=== PATIENT | female | born 1965 | race Caucasian/White ===

== ENCOUNTER 2022-04-15 11:02 | Emergency (ER) | payer MEDICARE, MEDICAID, SELFPAY ==
--- NOTE | ~2022-04-15 | CT_ITS ---
EXAMINATION: CT ABDOMEN AND PELVIS WITH CONTRAST CLINICAL INFORMATION: Vaginal bleeding for one month. COMPARISON: None TECHNIQUE: Multidetector volumetric images were obtained from the superior aspect of the liver through the pubic symphysis following administration 85 mL of Omnipaque 350 intravenous contrast. Sagittal and coronal reformatted images were obtained on the technologist's workstation. Oral contrast: No This CT examination was performed using dose optimization techniques as appropriate, variously including the following: *Automated exposure control *Adjustment of mA and/or kV according to patient size (this includes techniques or standardized protocols for targeted exams where dose is matched to indication/reason for exam; i.e. extremities or head) *Use of iterative reconstruction technique DLP: 1616 mGy-cm FINDINGS: LUNG BASES: The visualized lung bases are unremarkable. LIVER, GALLBLADDER, AND BILIARY TREE: The liver is normal in size, shape, and attenuation. No focal hepatic lesion or biliary ductal dilatation is present. Multiple small hypodense, cholesterol, stones in the gallbladder. No gallbladder wall thickening or pericholecystic fluid. No bile duct dilatation. PANCREAS: Unremarkable. SPLEEN: Unremarkable. ADRENAL GLANDS: Unremarkable. KIDNEYS AND URETERS: The kidneys are normal in size, shape, and attenuation. No hydronephrosis, hydroureter, or calculi seen. No perinephric stranding. BLADDER: Unremarkable. GASTROINTESTINAL TRACT: No acute abnormality There is no bowel wall thickening /edema. There is no bowel obstruction. There is a moderate to large volume of stool in the colon. Large volume of stool in the rectum sigmoid without evidence of stercoral colitis The appendix is normal . The small bowel loops are unremarkable. The stomach is normal. There is no hiatal hernia. Mesentery: No free air or free fluid. No inflammation. There are 2 intraventricular peritoneal catheters extending from the subcutaneous tissue into the lower pelvic abdominal cavity. There is a right-sided a left-sided catheter. ABDOMINAL WALL: No significant hernia is appreciated. LYMPH NODES: Normal. VASCULAR: IVC filter in place just inferior to the intrahepatic portion of the vein. Small volume of scattered vascular wall calcifications of the abdominal aorta. There is no aneurysm. PELVIC VISCERA: Uterus is anteverted. No adnexal abnormality. No fluid in the cul-de-sac. 1 cm coarse calcification in the right adnexa/ovary. OSSEOUS STRUCTURES: Compression deformity of the superior endplate of L1 appears chronic. A 50% loss of height of the vertebral body. No bone destruction. No paraspinal soft tissue mass. CT/CT abdomen pelvis w IV con IMPRESSION: No acute abnormality CT scan abdomen pelvis. Fleischner guidelines were followed.
[2022-04-15 11:27] VITALS: BP 110/66; BP 116/60; PULSE 88; PULSE 93; RESP 20; TEMP 37; O2SAT 96; O2SAT 97; BMI 41.1
--- NOTE | 2022-04-15 11:44 | ED.FEMALEGU ---
HPI - Female Genitourinary General Chief complaint: Vaginal Bleeding Stated complaint: VAGINAL BLEEDIN X'S 1 MTH,+THIN,FROM SNF PER EMS Time Seen by Provider: 04/15/22 11:20 Source: patient Mode of arrival: EMS Limitations: other (poor historian) History of Present Illness HPI Narrative: 57 yo female with hx of seizures, PE on eliquis, TBI, head injury, cognitive impairment, HTN presents with 1 month vaginal bleeding states she also now has lower pelvic pain but no sure when. She cannot tell me much else. Not sure why she was sent today with 1 month of bleeding. Does not remember last period. MD elicited complaint: vaginal bleeding and pelvic pain Onset (ago): month(s) (1) Location of symptoms: pelvis Severity: moderate Quality of pain: cramping and dull Consistency: constant Vaginal bleeding: moderate and clots Exacerbating factors: none Relieving factors: none Associated symptoms: denies other symptoms Treatment prior to arrival: none Related Data Allergies Allergy/AdvReac Type Severity Reaction Status Date / Time lactase [From LACTAID] Allergy Unknown UNKNOWN Unverified 11/17/19 18:55 Review of Systems Review of Systems: ROS unable to be obtained due to poor historian PMFSH Past Medical History Attestation statement: The following information was validated with the patient. Medical History Head injury Pulmonary embolus Seizure Social History Social History Alcohol intake: never Patient Tobacco Use Status: Tobacco use Unknown Smoked in Last 30 Days: No Use of substances other than those prescribed or required for medical reasons: No Advance Directives: Yes Advance Directives Information Provided: Yes Advance Directives on File: No Physical Exam Vital Signs: Vital Signs: Last Vital Signs Temp 99.3 F 04/15/22 14:04 Pulse 76 04/15/22 14:04 Resp 16 04/15/22 14:04 BP 171/89 H 04/15/22 14:04 Pulse Ox 96 04/15/22 14:04 O2 Del Method 04/15/22 14:04 BMI result Body Mass Index 41.1 Appearance: Alert. Oriented to self. No acute distress. Eyes: Pupils equal, round and reactive to light. ENT: Pharynx normal. Neck: Normal inspection. Neck supple. CVS: Normal heart rate and rhythm. Pulses normal. Respiratory: No respiratory distress. Breath sounds normal. Abdomen: Soft and nontender. : mild vaginal bleeding one clot seen no rectal bleeding Skin: Skin warm and dry. Normal skin color. Normal skin turgor. Extremities: No lower extremity edema. No calf ttp Neuro: Oriented to self No motor deficit. No sensory deficit. Course Course Course Narrative: type and screen ordered hemoglobin 12.7 on 04/03/22 Dr. Camarena to come see patient in ED refuses pelvic exam with OB needs biopsy can follow up with outpatient VS stable and female provider will send back to [facility] with instructions Medications Administered Discontinued Medications Generic Name Dose Route Start Last Admin Trade Name Freq PRN Reason Stop Dose Admin Iohexol 100 ml 04/15/22 14:41 04/15/22 14:41 Iohexol 350 Mg/Ml 100 Ml Infus..Btl IV 04/15/22 14:42 85 ml ONCE ONE Administration Medical Decision Making Medical Decision Making [facility] Narrative: 57 yo female with hx of seizures, PE on eliquis, TBI, head injury, cognitive impairment, HTN - here with complaint of vaginal bleeding x 1 month at this time will need basic labs, CT scan for mass she does not think she can tolerate a transvaginal US and given body habitus I do not think she could have transabdominal US. Possible uterine mass. Differential Diagnosis Differential Diagnoses: The differential diagnosis associated with the presentation includes uterine mass, coagulopathy, DUB Admission/Observation Consideration of admission/observation: Escalation of care including admission/observation considered Consult Healthcare Provider Management of the patient was discussed with: Ingredient Specialist Lab Data [facility] Lab Attestation statement: I reviewed the patient's lab results. 04/15/22 12:25 04/15/22 12:25 Labs: Lab Results 04/15/22 04/15/22 04/15/22 Range/Units 12:25 12:25 12:25 WBC 8.5 (4.8-10.8) X10*3/uL RBC 3.29 L (4.20-5.50) X10*6/uL Hgb 9.7 L (12.0-16.0) g/dl Hct 30.8 L (37.0-47.0) % MCV 93.6 (80.0-98.0) fL MCH 29.5 (27.0-33.0) pg MCHC 31.5 (31.0-35.0) g/dl RDW 14.6 (11.0-16.0) % Plt Count 338 (160-400) X10*3/uL MPV 9.8 (9.4-12.3) fL Immature Gran % (Auto) 0.4 (0.0-0.4) % Neut % (Auto) 55.5 (45-73) % Lymph % (Auto) 34.6 (20-40) % [place] % (Auto) 6.2 (2-11) % Eos % (Auto) 2.4 (0-4) % Baso % (Auto) 0.9 (0-2) % Lymph # (Auto) 2.9 (1.2-4.9) X10*3/uL [place] # (Auto) 0.5 (0.1-1.2) X10*3/uL Eos # (Auto) 0.2 (0.0-0.4) X10*3/uL Baso # (Auto) 0.1 (0.0-0.2) X10*3/uL Abs Immat Gran (auto) 0.03 (0.00-0.03) X10*3/uL Absolute Neuts (auto) 4.7 (2.0-8.3) x10*3/uL Absolute Nucleated RBC 0.000 (0.0-0.012) X10*3/uL Nucleated RBC % (auto) 0.0 (0.0-0.2) /100WBC PT 18.9 H (10.0-13.1) SEC INR 1.6 H (0.9-1.1) Sodium 141 (135-145) mmol/L Potassium 4.1 (3.3-5.1) mmol/L Chloride 103 (96-108) mmol/L Carbon Dioxide 29 (22-29) mmol/L Anion Gap 13 (12-20) BUN 13 (9-16) mg/dL Creatinine 0.61 (0.5-1.4) mg/dL Estim Creat Clear Calc 121.1 Estimated GFR > 60 Random Glucose 100 (60-115) mg/dL Calcium 8.7 (8.4-10.2) mg/dL Magnesium 1.9 (1.6-2.6) mg/dL Total Bilirubin 0.3 (0.0-1.0) mg/dL Direct Bilirubin < 0.2 (0.0-0.5) mg/dL AST 11 (5-31) U/L ALT 10 (0-31) U/L Alkaline Phosphatase 56 (39-117) U/L Total Protein 5.9 L (6.5-8.0) g/dL Albumin 3.2 L (3.5-5.0) g/dL Lipase 23 (8-78) U/L COVID-19 (JUAN ANTONIO) (Negative) COVID-19 Clin Com 04/15/22 Range/Units 12:25 WBC (4.8-10.8) X10*3/uL RBC (4.20-5.50) X10*6/uL Hgb (12.0-16.0) g/dl Hct (37.0-47.0) % MCV (80.0-98.0) fL MCH (27.0-33.0) pg MCHC (31.0-35.0) g/dl RDW (11.0-16.0) % Plt Count (160-400) X10*3/uL MPV (9.4-12.3) fL Immature Gran % (Auto) (0.0-0.4) % Neut % (Auto) (45-73) % Lymph % (Auto) (20-40) % [place] % (Auto) (2-11) % Eos % (Auto) (0-4) % Baso % (Auto) (0-2) % Lymph # (Auto) (1.2-4.9) X10*3/uL Perry # (Auto) (0.1-1.2) X10*3/uL Eos # (Auto) (0.0-0.4) X10*3/uL Baso # (Auto) (0.0-0.2) X10*3/uL Abs Immat Gran (auto) (0.00-0.03) X10*3/uL Absolute Neuts (auto) (2.0-8.3) x10*3/uL Absolute Nucleated RBC (0.0-0.012) X10*3/uL Nucleated RBC % (auto) (0.0-0.2) /100WBC PT (10.0-13.1) SEC INR (0.9-1.1) Sodium (135-145) mmol/L Potassium (3.3-5.1) mmol/L Chloride (96-108) mmol/L Carbon Dioxide (22-29) mmol/L Anion Gap (12-20) BUN (9-16) mg/dL Creatinine (0.5-1.4) mg/dL Estim Creat Clear Calc Estimated GFR Random Glucose (60-115) mg/dL Calcium (8.4-10.2) mg/dL Magnesium (1.6-2.6) mg/dL Total Bilirubin (0.0-1.0) mg/dL Direct Bilirubin (0.0-0.5) mg/dL AST (5-31) U/L ALT (0-31) U/L Alkaline Phosphatase (39-117) U/L Total Protein (6.5-8.0) g/dL Albumin (3.5-5.0) g/dL Lipase (8-78) U/L COVID-19 (JUAN ANTONIO) Negative (Negative) COVID-19 Clin Com See Note Independent Interpretation I performed an independent interpretation of an: CT Scan Radiology Impression Discussion of test interpretation with radiology: I have reviewed the radiologist's reading. Independent Historian Clinical information obtained from an independent historian. History obtained from or confirmed by: Other External Record Review External record reviewed: Outpatient record Social Determinants Patient?s care significantly limited by Social Determinants of Health including: Other Social Determinant of Health Discharge Plan Discharge Clinical Impression: Vaginal bleeding Patient Disposition: Home, Self-Care Instructions: Dysfunctional Uterine Bleeding (ED) Additional Instructions: return to ED for any worsening symptoms or concerns hemoglobin did drop 9.7 recheck in 1 day seen by OB in ED - follow up as outpatient try for female provider, needs outpatient endometrial biopsy and pap smear return for worsening bleeding, would consider holding eliquis, add on Fe daily return for pain, worsening bleeding, weakness, dizziness CT scan done no uterine masses seen - patient didnt feel she could tolerate pelvic US
[2022-04-15 12:34] LABS: MANUAL DIFF FLAG NO
[2022-04-15 12:35] LABS: Basophils Absolute Auto 0.1 X10*3/uL (0.0-0.2); Basophils Percent Auto 0.9 % (0-2); Eosinophils Absolute Auto 0.2 X10*3/uL (0.0-0.4); Eosinophils Percent Auto 2.4 % (0-4); Hematocrit 30.8 % (37.0-47.0); Hemoglobin 9.7 g/dl (12.0-16.0); Imm Gran Abs Auto 0.03 X10*3/uL (0.00-0.03); Imm Gran Pct Auto 0.4 % (0.0-0.4); Lymphocytes Absolute Auto 2.9 X10*3/uL (1.2-4.9); Lymphocytes Percent Auto 34.6 % (20-40); Mean Corpuscular HGB Conc 31.5 g/dl (31.0-35.0); Mean Corpuscular Hemoglobin 29.5 pg (27.0-33.0); Mean Corpuscular Volume 93.6 fL (80.0-98.0); Mean Platelet Volume 9.8 fL (9.4-12.3); Monocytes Absolute Auto 0.5 X10*3/uL (0.1-1.2); Monocytes Percent Auto 6.2 % (2-11); Neutrophils Absolute Auto 4.7 x10*3/uL (2.0-8.3); Neutrophils Percent Auto 55.5 % (45-73); Platelet Count 338 X10*3/uL (160-400); Red Blood Count 3.29 X10*6/uL (4.20-5.50); Red Cell Distribution Width 14.6 % (11.0-16.0); White Blood Count 8.5 X10*3/uL (4.8-10.8)
[2022-04-15 13:01] LABS: INTERNATIONAL NORM RATIO 1.6 (0.9-1.1); Prothrombin Time 18.9 SEC (10.0-13.1)
[2022-04-15 13:03] LABS: COVID-19 Test Negative (Negative); IDNOW Serial# 55D5AD1C
[2022-04-15 13:05] LABS: Alanine Aminotransferase 10 U/L (0-31); Albumin Level 3.2 g/dL (3.5-5.0); Alkaline Phosphatase 56 U/L (39-117); Anion Gap 13 (12-20); Aspartate Amino Transferase 11 U/L (5-31); Bilirubin Direct < 0.2 mg/dL (0.0-0.5); Bilirubin Total 0.3 mg/dL (0.0-1.0); Blood Urea Nitrogen 13 mg/dL (9-16); Calcium 8.7 mg/dL (8.4-10.2); Carbon Dioxide 29 mmol/L (22-29); Chloride 103 mmol/L (96-108); Creatinine Clr Calc Pharmacy 121.1; Estimated Glomerular Filt Rate > 60; Glucose Random 100 mg/dL (60-115); Lipase 23 U/L (8-78); Magnesium 1.9 mg/dL (1.6-2.6); Potassium 4.1 mmol/L (3.3-5.1); Sodium 141 mmol/L (135-145); Total Protein 5.9 g/dL (6.5-8.0)
[2022-04-15 14:04] VITALS: BP 171/89; PULSE 76; RESP 16; TEMP 37.4; O2SAT 96
--- NOTE | 2022-04-15 14:39 | MHC.EDTECH ---
patient rang call mullins requesting to be changed, pt stated she had a bowel movement. pt rolled and there was vaginal blood on the pad, no sign of bowel movement. pt washed up and given new pads and a warm blanket.
[2022-04-15] MEDS: iohexoL 350 MG/ML 100 ML INFUS..BTL IV (14:41)
--- NOTE | 2022-04-15 15:38 | PC.NURSE ---
Dr. Camarena at bedside.
--- NOTE | 2022-04-15 15:44 | PM.GYNCN ---
PRESERVATIVE FILLER MACHINE OPERATOR - CN: HPI Data of Consult Consult date: 04/15/22 Primary Care Provider: Vivek Temple DO Consult Narrative Narrative: I was consulted on Sanaz Benitez who is a 57 year old female presented the emergency room with vaginal bleeding of 2 weeks duration , on Eliquis for PE cc:: CC: OB [facility] Past Medical History Medical History Head injury Pulmonary embolus Seizure Social History Social History Alcohol intake: never Patient Tobacco Use Status: Tobacco use Unknown Smoked in Last 30 Days: No Use of substances other than those prescribed or required for medical reasons: No Advance Directives: Yes Advance Directives Information Provided: Yes Advance Directives on File: No Meds Allergies Allergy/AdvReac Type Severity Reaction Status Date / Time lactase [From LACTAID] Allergy Unknown UNKNOWN Unverified 11/17/19 18:55 PRESERVATIVE FILLER MACHINE OPERATOR Physical Exam Vitals Vital signs: Temp Pulse Resp BP Pulse Ox O2 Del Method 99.3 F 76 16 171/89 H 96 04/15/22 14:04 04/15/22 14:04 04/15/22 14:04 04/15/22 14:04 04/15/22 14:04 04/15/22 14:04 BMI result Body Mass Index 41.1 Female Genitalia (Pelvic) Exam: Declined by Patient PRESERVATIVE FILLER MACHINE OPERATOR - Results Labs 04/15/22 12:25 04/15/22 12:25 Labs: Short CBC 04/15/22 Range/Units 12:25 WBC 8.5 (4.8-10.8) X10*3/uL Hgb 9.7 L (12.0-16.0) g/dl Hct 30.8 L (37.0-47.0) % Plt Count 338 (160-400) X10*3/uL BMP 04/15/22 12:25 Sodium 141 Potassium 4.1 Chloride 103 Carbon Dioxide 29 BUN 13 Creatinine 0.61 Calcium 8.7 Liver Function 04/15/22 Range/Units 12:25 Total Bilirubin 0.3 (0.0-1.0) mg/dL Direct Bilirubin < 0.2 (0.0-0.5) mg/dL AST 11 (5-31) U/L ALT 10 (0-31) U/L Alkaline Phosphatase 56 (39-117) U/L Albumin 3.2 L (3.5-5.0) g/dL Assessment and Plan (1) Postmenopausal bleeding: Status: Acute Discussed with the patient the differential diagnosis of post menopausal bleeding , cervical pathology, vaginal abnormalities, endometrial hyperplasia, cancer, polyps and other causes; explained to the patient that the importance of a pelvic exam as part of the evaluation in postmenopausal bleeding, in addition to pelvic ultrasound to measure the endometrial stripe; the patient declined, after multiple attempts to explain the importance of the exam, the patient adamantly declines. Discussed the case with Dr. Gordillo and recommended the following : If the patient is stable to be discharged from the emergency without evidence of active vaginal bleeding and stable H&H and vital signs, I recommend an outpatient evaluation including a pelvic exam, co testing, vaginal exam, pelvic ultrasound to measure endometrial stripe , if the endometrial thickness is more than 4 mm to proceed with endometrial sampling to rule out endometrial pathology including endometrial hyperplasia and/or malignancy. If the patient is not her own health care proxy to relate the recommendation to the appointed healthcare proxy. I spent a total of 20 minute reviewing the chart, communicating with emergency room provider and documenting in the medical record Time Spent With Patient Time: Total time managing care of this patient today ____ minutes.
== END 2022-04-15 18:10 ==
PROVIDERS: Emergency Provider Emergency Medicine; PCP Hospitalist
DX: N95.0 Postmenopausal bleeding (principal); N93.8 Other specified abnormal uterine and vaginal bleeding; R10.2 Pelvic and perineal pain; Z20.822 Contact with and (suspected) exposure to COVID-19; Z20.828 Contact with and (suspected) exposure to other viral communicable diseases; Z79.899 Other long term (current) drug therapy
CPT/HCPCS: 74177; 80048; 80076; 83690; 83735; 85025; 85610; 87635; 99284; Q9967

== ENCOUNTER 2023-06-08 08:54 | Emergency (ER) | payer MEDICARE, MEDICAID, SELFPAY ==
--- NOTE | ~2023-06-08 | XR_ITS ---
EXAMINATION: XR WRIST, RIGHT CLINICAL INFORMATION: Pain and swelling. COMPARISON: None available. TECHNIQUE: Four views of the right wrist. FINDINGS: Moderate degenerative changes in the first carpometacarpal joint with joint space narrowing and hypertrophic change. Limited views of the first metacarpophalangeal joint demonstrate moderate degenerative changes with joint space narrowing and hypertrophic change. Dedicated views of the hand could be considered for further evaluation. Possible faint amorphous density projects over the distal ulna and soft tissues just distal to that on a PA view, possibly overlying the distal radius and lunate on other views, but difficult to confirm. Correlation with clinical exam recommended to determine further management. Subtle oblique linear lucency along the distal aspect of the radius with slight cortical bulge could represent normal variant, but impacted nondisplaced fracture of indeterminate age should also be considered. XR/XR wrist RT 2V IMPRESSION: 1. Subtle oblique linear lucency along the distal aspect of the radius with slight cortical bulge could represent normal variant, but impacted nondisplaced fracture of indeterminate age should also be considered. 2. Moderate degenerative changes first carpometacarpal joint. 3. Possible faint amorphous density projects over the distal ulna and soft tissues just distal to that on a PA view, possibly overlying the distal radius and lunate on other views, but difficult to confirm. Correlation with clinical exam recommended to determine further management. 4. Recommend follow up imaging in 10-14 days if fracture is suspected. This study was presented today, 06/08/2023, for interpretation. Stat results provided at this time as requested by referring provider.
--- NOTE | ~2023-06-08 | US_ITS ---
EXAMINATION: US VENOUS WITH DOPPLER UPPER EXTREMITY, RIGHT CLINICAL INFORMATION: Right upper extremity swelling. COMPARISON: None available. TECHNIQUE: Ultrasound of the upper extremity is performed using compression sonography and color and pulse Doppler flow with assessment of augmentation of flow. There is also imaging and Doppler assessment of the jugular and subclavian veins. Spectral analysis with color-flow imaging is performed. FINDINGS: Respiratory variation, normal compression, and augmented flow are noted throughout the upper extremity including the axillary, brachial, basilic and cephalic veins. There is normal flow in the internal jugular and subclavian veins. There is no visible deep or superficial thrombophlebitis. If the patient's symptoms progress, a followup ultrasound in 5 -7 days might be of value to exclude proximal propagation from a nonvisualized distal arm vein. US/US venous duplex UE RT IMPRESSION: No DVT demonstrated in the right upper extremity.
--- NOTE | 2023-06-08 09:03 | ED.GENADULT ---
HPI - General Adult General Chief complaint: Extremity Problem Stated complaint: R ARM SWELLING,NO INJURY FROM SNF PER EMS Time Seen by Provider: 06/08/23 08:55 Source: patient and EMS Mode of arrival: EMS Limitations: other (slow speech from old TBI) History of Present Illness HPI narrative: right arm pain and swelling for the past few days. Patient states that she has had cellulitis in that arm Onset (ago): day(s) Related Data Previous Rx's ?Medication ?Instructions ?Recorded cephalexin 500 mg capsule 500 mg PO Q6H 10 days #40 caps 06/08/23 Allergies Allergy/AdvReac Type Severity Reaction Status Date / Time lactase [From LACTAID] Allergy Unknown UNKNOWN Verified 06/08/23 09:29 Review of Systems Review of Systems: Yes all other systems are reviewed and are negative Neurologic: Denies Sensory deficit (Neuro) [facility] Past Medical History Medical History Pulmonary embolus Head injury Seizure Social History Social History Alcohol intake: never Patient Tobacco Use Status: Tobacco use Unknown Advance Directives: No Advance Directives Information Provided: No Physical Exam ED Vital Signs: Vital Signs - 24 hr 06/08/23 09:27 06/08/23 11:27 Temperature 98.1 F 98.4 F Pulse Rate 99 90 Respiratory Rate 16 16 Blood Pressure 122/67 122/65 Pulse Oximetry 93 95 Oxygen Delivery Method Room Air Room Air BMI result Body Mass Index 41.9 Const Other: patient speaking slowly, prior craniotomy scar and head deformity Nutritional Appearance: average body habitus Orientation/consciousness: oriented to person and patient oriented x3 Limitations: no limitations HENMT Head: Yes normal to inspection Ears: external ears normal General nose exam: Normal external nose present Mouth: Normal oral and palatal mucosa present and oropharynx normal Throat: Yes posterior oropharynx normal Eyes General: appearance normal, both eyes and all related structures Neck Neck: Yes normal visual inspection Chest Chest palpation & inspection: normal inspection of the chest Resp Auscultation: clear to auscultation bilaterally Cardio Jugular venous distension: no JVD Rate: regular rate Rhythm: regular rhythm Heart sounds: S1 normal heart sound present and S2 normal heart sound present GI Inspection: Yes normal to inspection Palpation (GI): Soft to palpation, nontender and No hepatosplenomegaly present Auscultation: normal bowel sounds General: Yes no CVA tenderness Back/Spine/Pelvis Back: no CVA tenderness Skin Other: redness and warmth to the right forearm Neuro General: oriented to person and patient oriented x3 Cranial nerves: Yes CN's II-XII intact bilaterally Motor exam (neuro): 5/5 motor strength present throughout Sensory Exam: No Sensory deficit (Neuro) Extrem General: Yes normal to inspection Psych Appearance: grossly normal Course Reevaluation(s) Reevaluation #1: clinically patient wtih early cellulitis will give a dose of IV ancef and dc on Keflex Time: 12:26 Medications Administered Discontinued Medications Generic Name Dose Route Start Last Admin Trade Name Freq PRN Reason Stop Dose Admin Cefazolin Sodium 1 gm/ Sodium 50 mls @ 100 mls/hr 06/08/23 12:06 06/08/23 12:18 Chloride IV 06/08/23 12:35 100 mls/hr ONCE ONE Administration Ketorolac Tromethamine 30 mg 06/08/23 12:05 06/08/23 12:17 Ketorolac Tromethamine 30 Mg/Ml Vial IVPUSH 06/08/23 12:06 30 mg ONCE ONE Administration Medical Decision Making Differential Diagnosis Differential Diagnoses: The differential diagnosis associated with the presentation includes (cellulitis, dvt, gout, arthritis were all considered) Admission/Observation Consideration of admission/observation: Escalation of care including admission/observation considered (upon arrival admission was considered) Lab Data 06/08/23 09:37 06/08/23 09:37 Labs: Lab Results 06/08/23 Range/Units 09:37 WBC 10.3 (4.8-10.8) X10*3/uL RBC 4.55 D (4.20-5.50) X10*6/uL Hgb 14.3 D (12.0-16.0) g/dl Hct 43.8 D (37.0-47.0) % MCV 96.3 (80.0-98.0) fL MCH 31.4 (27.0-33.0) pg MCHC 32.6 (31.0-35.0) g/dl RDW 12.7 (11.0-16.0) % Plt Count 279 (160-400) X10*3/uL MPV 8.9 L (9.4-12.3) fL Immature Gran % (Auto) 0.3 (0.0-0.4) % Neut % (Auto) 67.9 (45-73) % Lymph % (Auto) 24.0 (20-40) % [place] % (Auto) 6.2 (2-11) % Eos % (Auto) 1.1 (0-4) % Baso % (Auto) 0.5 (0-2) % Lymph # (Auto) 2.5 (1.2-4.9) X10*3/uL [place] # (Auto) 0.6 (0.1-1.2) X10*3/uL Eos # (Auto) 0.1 (0.0-0.4) X10*3/uL Baso # (Auto) 0.1 (0.0-0.2) X10*3/uL Abs Immat Gran (auto) 0.03 (0.00-0.03) X10*3/uL Absolute Neuts (auto) 7.0 (2.0-8.3) x10*3/uL Absolute Nucleated RBC 0.000 (0.0-0.012) X10*3/uL Nucleated RBC % (auto) 0.0 (0.0-0.2) /100WBC ESR 62 H (0-20) MM/HR Sodium 139 (135-145) mmol/L Potassium 3.6 (3.3-5.1) mmol/L Chloride 102 (96-108) mmol/L Carbon Dioxide 28 (22-29) mmol/L Anion Gap 13 (12-20) BUN 12 (9-16) mg/dL Creatinine 0.71 (0.5-1.4) mg/dL Estim Creat Clear Calc 103.8 Estimated GFR > 60 Random Glucose 190 H (60-115) mg/dL Calcium 9.0 (8.4-10.2) mg/dL C-Reactive Protein 8.30 H (< or = 0.50) mg/dL Independent Interpretation I performed an independent interpretation of an: Plain X-Ray (wrist: no fracture) Radiology Impression Discussion of test interpretation with radiology: I have reviewed the radiologist's reading. (ultrasound of arm: no dvt) Independent Historian Clinical information obtained from an independent historian. History obtained from or confirmed by: EMS Chronic Conditions Patient?s care impacted by: Other (TBI) Discharge Plan Discharge Clinical Impression: Cellulitis Patient Disposition: Home, Self-Care Instructions: Cellulitis (ED) Prescriptions: New cephalexin 500 mg capsule 500 mg PO Q6H 10 Days Qty: 40 0RF Referrals: Vivek Temple DO [Physician] - 1 week Print Language: Tamazight
[2023-06-08 09:27] VITALS: BP 122/67; PULSE 99; RESP 16; TEMP 36.7; O2SAT 93; BMI 41.9
[2023-06-08 09:47] LABS: MANUAL DIFF FLAG NO
[2023-06-08 09:48] LABS: Basophils Absolute Auto 0.1 X10*3/uL (0.0-0.2); Basophils Percent Auto 0.5 % (0-2); Eosinophils Absolute Auto 0.1 X10*3/uL (0.0-0.4); Eosinophils Percent Auto 1.1 % (0-4); Hematocrit 43.8 % (37.0-47.0); Hemoglobin 14.3 g/dl (12.0-16.0); Imm Gran Abs Auto 0.03 X10*3/uL (0.00-0.03); Imm Gran Pct Auto 0.3 % (0.0-0.4); Lymphocytes Absolute Auto 2.5 X10*3/uL (1.2-4.9); Mean Corpuscular HGB Conc 32.6 g/dl (31.0-35.0); Mean Corpuscular Hemoglobin 31.4 pg (27.0-33.0); Mean Corpuscular Volume 96.3 fL (80.0-98.0); Mean Platelet Volume 8.9 fL (9.4-12.3); Monocytes Absolute Auto 0.6 X10*3/uL (0.1-1.2); Monocytes Percent Auto 6.2 % (2-11); Neutrophils Percent Auto 67.9 % (45-73); Platelet Count 279 X10*3/uL (160-400); Red Blood Count 4.55 X10*6/uL (4.20-5.50); Red Cell Distribution Width 12.7 % (11.0-16.0); White Blood Count 10.3 X10*3/uL (4.8-10.8)
--- NOTE | 2023-06-08 09:52 | PC.NURSE ---
coming from [facility] for right arm pain/swelling. patient reports this has been going on for the past two days. left sided paralysis. IV established, labs obtained and sent. awaiting xray/ultrasound.
[2023-06-08 10:08] LABS: Anion Gap 13 (12-20); Blood Urea Nitrogen 12 mg/dL (9-16); Carbon Dioxide 28 mmol/L (22-29); Chloride 102 mmol/L (96-108); Creatinine Clr Calc Pharmacy 103.8; Estimated Glomerular Filt Rate > 60; Glucose Random 190 mg/dL (60-115); Potassium 3.6 mmol/L (3.3-5.1); Sodium 139 mmol/L (135-145)
[2023-06-08 10:40] LABS: Erythrocyte Sedimentation Rate 62 MM/HR (0-20)
--- NOTE | 2023-06-08 10:54 | PC.NURSE ---
ultrasound obtained, xray at bedside
[2023-06-08 11:27] VITALS: BP 122/65; PULSE 90; RESP 16; TEMP 36.9; O2SAT 95
--- NOTE | 2023-06-08 11:57 | PC.NURSE ---
assumed care of this patient at 1100, full linen change as patient was incontinent of large amount of urine, informed patient of plan of care awaiting test results.
[2023-06-08] MEDS: Ketorolac Tromethamine 30 MG/ML VIAL IVPUSH (12:17)
[2023-06-08 14:00] VITALS: BP 119/70; PULSE 87; RESP 16; TEMP 36.8; O2SAT 95
[2023-06-08 18:30] VITALS: BP 120/86; PULSE 87; RESP 16; TEMP 36.8; O2SAT 95
== END 2023-06-08 19:20 ==
PROVIDERS: Emergency Provider Emergency Medicine
DX: L03.113 Cellulitis of right upper limb (principal); Z86.711 Personal history of pulmonary embolism
CPT/HCPCS: 36415; 73100; 80048; 85025; 85652; 86140; 93971; 96365; 96375; 99284; 99285; J0690; J1885